=== PATIENT | male | born 1990 | race Caucasian/White ===

== ENCOUNTER 2017-06-03 00:55 | Emergency (ER) | payer OTHER ==
[~2017-06-03] VITALS: Ht 182.9 cm; Wt 89.4 kg
[2017-06-03 01:01] VITALS: BP 117/62
[2017-06-03] MEDS ORDERED: DIPH25CA58 PO (01:23)
[2017-06-03] MEDS ORDERED: FAMO-63 PO (01:23)
--- NOTE | 2017-06-03 01:24 | PHYS DOC ---
Adult General HPI HPI Patient is a 27-year-old male with no significant past medical history presents with concerns of allergic reaction to the right lower extremity. Patient recently had surgery at the ankle and is currently on a cast, surgery was 2 days ago. Patient denies any swelling or pain or discharge or discoloration but does describe the area involved as feeling itchy. Patient denies any throat swelling, difficulty swallowing or shortness of breath. No fever, vomiting, diarrhea Review of Systems Review of Systems Constitutional: Denies fever or chills [] HENT: Denies problems swallowing or sore throat [] Respiratory: Denies cough or shortness of breath [] Cardiovascular: No pain GI: Denies abdominal pain, nausea, vomiting, or diarrhea [] Musculoskeletal: Denies back pain or joint pain [] Integument: Rash in right upper thigh Neurologic: Denies headache, focal weakness or sensory changes [] All other systems were reviewed and found to be within normal limits, except as documented in this note. Current Medications Current Medications Current Medications Medications (Trade) Dose Ordered Sig/Oliver Start Time Stop Time Status Last Admin Dose Admin Dexamethasone (Decadron) 8 mg 1X ONCE 06/03/17 01:15 06/03/17 01:16 UNV Diphenhydramine HCl (Benadryl) 25 mg 1X ONCE 06/03/17 01:15 06/03/17 01:16 UNV Famotidine (Pepcid) 20 mg 1X ONCE 06/03/17 01:15 06/03/17 01:16 UNV Physical Exam Physical Exam Constitutional: Well developed, well nourished, no acute distress, non-toxic appearance. No purulence smells. HENT: Normocephalic, atraumatic, bilateral external ears normal, oropharynx moist, no oral exudates, nose normal. Airways patent Eyes: EOMI, conjunctiva normal, no discharge. [] Neck: Normal range of motion, trachea midline no stridor. [] Cardiovascular:Heart rate regular rhythm, no murmur , normal perfusion Lungs & Thorax: Bilateral breath sounds clear to auscultation, no tachypnea Abdomen: No distention. No lymphadenopathy right inguinal area Skin: Nonspecific rash from knee to upper thigh and right side, some small hives , no petechiae, no desquamation, no weeping. No increased warmth in the area of the rash nor pain with palpation Back: Normal range of motion Extremities: No tenderness, distally neurovascularly intact everywhere, ROM intact, no edema. No evidence of compartment syndrome, full range of motion at the knee without signs of septic joint Neurologic: Alert and oriented X 3, normal motor function, normal sensory function, no focal deficits noted. [] Psychologic: Affect normal, judgement normal, mood normal. [] EKG EKG [] Radiology/Procedures Radiology/Procedures [] Course & Med Decision Making Course & Med Decision Making Pertinent Labs and Imaging studies reviewed. (See chart for details) Patient looks very well and is nontoxic. I have directed the patient to get rechecked and reevaluated on Sunday. Strict return precautions have been discussed which include but are not limited to development of pain, fevers, swelling, discharge, shortness of fair, throat pain, etc. Given the benign exam at presentation I do not believe the patient needs inpatient evaluation or blood work at this time. I also do not believe that he needs to cast removal at this time. However if symptoms worsen or new concerning symptoms develop that may be necessary. At the time of this ED evaluation is appears to be a localized reaction, there are no signs of a systemic illness, there is also no signs of DVT or compartment syndrome or septic joints [] Dragon Disclaimer Dragon Disclaimer This electronic medical record was generated, in whole or in part, using a voice recognition dictation system. Departure Departure: Impression: Primary Impression: Rash Disposition: HOME, SELF-CARE Condition: STABLE Referrals: PCP,UNKNOWN (PCP) Patient Instructions: Rash Additional Instructions: Please follow with your doctor for recheck and reevaluation in 2 days. Please take pictures of the affected area every day to monitor changes Scripts Diphenhydramine Hcl (BENADRYL) 25 Mg Capsule 1 CAP PO TID for 5 Days, #15 CAP 1 Refill Prov: Dorothy AGUILAR MD 06/03/17 Famotidine (PEPCID) 20 Mg Tablet 1 TAB PO TID for 5 Days, #15 TAB 3 Refills Prov: Dorothy AGUILAR MD 06/03/17 Dorothy AGUILAR MD Jun 03, 2017 01:24
[2017-06-03] MEDS ORDERED: FAMOTIDINE 20 MG TABLET PO ONE (01:30)
[2017-06-03] MEDS ORDERED: DEXAMETHASONE 4 MG TABLET PO ONE (01:30)
[2017-06-03] MEDS ORDERED: diphenhydrAMINE HCL 25 MG CAPSULE PO ONE (01:30)
== END 2017-06-03 01:36 | disposition home or self-care (01) ==
LOC: ER 00:55
DX: R21 Rash and other nonspecific skin eruption (principal)
CPT/HCPCS: 99283; J8540

== ENCOUNTER 2017-06-17 21:50 | Emergency (ER) | payer OTHER ==
[~2017-06-17] VITALS: Ht 182.9 cm; Wt 88.0 kg
[~2017-06-17 21:50] MED LIST: DIPH25CA58 PO; FAMO-63 PO
[2017-06-17 21:56] VITALS: BP 166/80
--- NOTE | 2017-06-17 22:15 | PHYS DOC ---
Past History Past Medical History: No Pertinent History Past Surgical History: Other Alcohol Use: Rarely Drug Use: None Adult General Chief Complaint Chief Complaint: WOUND CHECK HPI HPI Patient is a pleasant 27-year-old male with a postoperative wound check after an ankle surgery that occurred on May 14. Patient bereket cast this point given the type of surgery he sustained on May 14 but because of allergic reaction to the sock he was wearing underneath the cast was removed. He is noted increasing drainage from the wound today with localized redness and swelling. Although he denies any fevers he said he has had chills with this drainage. He has increasing pain around the wound edges with no numbness and tingling below the wound. Patient denies any knee pain hip pain or other general reaction. He is follow-up appointment on June 21 with his orthopedic surgeon he is not on any antibiotics pain right now is moderate in nature worse with range of motion and direct pressure over the wound Review of Systems Review of Systems Constitutional: Positive for chills negative for fevers Eyes: Denies change in visual acuity, redness, or eye pain [] HENT: Denies nasal congestion or sore throat [] Respiratory: Denies cough or shortness of breath [] Cardiovascular: No additional information not addressed in HPI [] GI: Denies abdominal pain, nausea, vomiting, bloody stools or diarrhea [] : Denies dysuria or hematuria [] Musculoskeletal: Patient's main complaint is joint pain over the right ankle over the surgical site.[] Integument: he complains of increased redness with localized swelling mild drainage from the wound. Neurologic: Denies headache, focal weakness or sensory changes [] Endocrine: Denies polyuria or polydipsia [] All other systems were reviewed and found to be within normal limits, except as documented in this note. Current Medications Current Medications Current Medications Medications (Trade) Dose Ordered Sig/Oliver Start Time Stop Time Status Last Admin Dose Admin Hydromorphone HCl (Dilaudid) 1 mg 1X ONCE 06/17/17 22:30 06/17/17 22:31 Sodium Chloride 1,000 ml @ 1,000 mls/hr 1X ONCE 06/17/17 22:30 06/17/17 23:29 Allergies Allergies Allergies Coded Allergies Type Severity Reaction Last Updated Verified No Known Drug Allergies 06/03/17 No Physical Exam Physical Exam Constitutional: Well developed, well nourished, no acute distress, non-toxic appearance. [] Cardiovascular:Heart rate regular rhythm, no murmur [] Lungs & Thorax: Bilateral breath sounds clear to auscultation [] Skin: Warm, dry, skin evaluated by the incision site on the medial and lateral aspect of the ankles bilaterally demonstrate granulation tissue around the wound edges with appropriate erythema there is serous sinus drainage. There is some slight yellowing of the discharge there is no expressed pus or significant soft tissue swelling or abscess that developed. His are adherent and well approximated is no obvious signs of dehiscence[] Extremities: Tenderness noted around the wound edges no cyanosis, no clubbing, range of motion is decreased secondary to surgical postoperative changes and patient's reluctant to move wound., no edema. [] Neurologic: Alert and oriented X 3, normal motor function, normal sensory function, no focal deficits noted. [] Psychologic: Affect normal, judgement normal, mood normal. [] EKG EKG [] Radiology/Procedures Radiology/Procedures [] Course & Med Decision Making Course & Med Decision Making Pertinent Labs and Imaging studies reviewed. (See chart for details) []Patient has a wound looks like it's granulating in well and healing well although there is some mild erythema to the wound edges this may be a normal presentation. He has no purulent discharge and no fluctuance that is around the wound edges. I will screen him for cellulitis and ostium myelitis the wound. A CBC, sedimentation rate and CRP will be completed along with x-rays to ensure that this is not osteomyelitis which is doubtful just based on presentation. 3 view ankle films of the right ankle demonstrate no evidence of periosteal inflammation there is no subcutaneous is air patient's wound looks well-healed, there is no marked soft tissue swelling or obvious signs of bony abnormality. The patient at the bedside we are going to clean his wound apply a liberal application of bacitracin ointment to the wound with a nonadherent gauze Kerlix around the wound and a Russell wrap and asked him to follow-up with his orthopedic surgeon in the next 24-48 hours. At this point I do not believe he requires antibiotics. Healing very well with current regulation tissue that does not look infected. Patient did have an elevated white blood cell count on the CBC of 13,000 which may be related to the actual surgery and not be related to infection. Sedimentation rate is normal and I feel convinced that based on patient's presentation and the look of the wound at this is not infected. He had the wound dressed here we taught him how to take care of the wound until his follow- up on the orthopedic surgery. He is also given precautions to return for any worsening symptoms fevers or chills with redness and increased purulent drainage from the wound itself Laboratory Tests Test 06/17/17 22:14 White Blood Count 13.0 x10^3/uL (4.0-11.0) H Red Blood Count 5.85 x10^6/uL (4.30-5.70) H Hemoglobin 17.7 g/dL (13.0-17.5) H Hematocrit 51.1 % (39.0-53.0) Mean Corpuscular Volume 87 fL (79-100) Mean Corpuscular Hemoglobin 30 pg (25-35) Mean Corpuscular Hemoglobin Concent 35 g/dL (31-37) Red Cell Distribution Width 13.1 % (11.5-14.5) Platelet Count 253 x10^3/uL (140-400) Neutrophils (%) (Auto) 56 % (31-73) Lymphocytes (%) (Auto) 32 % (24-48) Monocytes (%) (Auto) 6 % (0-9) Eosinophils (%) (Auto) 6 % (0-3) H Basophils (%) (Auto) 1 % (0-3) Neutrophils # (Auto) 7.3 x10^3uL (1.8-7.7) Lymphocytes # (Auto) 4.1 x10^3/uL (1.0-4.8) Monocytes # (Auto) 0.7 x10^3/uL (0.0-1.1) Eosinophils # (Auto) 0.8 x10^3/uL (0.0-0.7) H Basophils # (Auto) 0.1 x10^3/uL (0.0-0.2) Erythrocyte Sedimentation Rate Pending discharge: I've spoken with the patient and/or caregivers. I've explained the patient's condition, diagnosis and treatment plan based on information available to me at this time. I've answered the patient's and/or caregivers questions and addressed any concerns. The patient and/or caregivers have a good understanding the patient's diagnosis, condition and treatment plan as can be expected at this point. Vital signs have been stabilized. The patient's condition is stable for discharge from the emergency department. The patient will pursue further outpatient evaluation with her primary care provider or other designated consulting physician as outlined in the discharge instructions. Patient and/or caregivers are agreeable to this plan of care and follow-up instructions have been explained in detail. The patient and/or caregivers have received these instructions in written format and expressed understanding of these discharge instructions. The patient and her caregivers are aware that if any significant change in condition or worsening of symptoms should prompt him to immediately return to this of the closest emergency department. If an emergent department is not readily available I would encourage him to call 911. Dragon Disclaimer Dragon Disclaimer This electronic medical record was generated, in whole or in part, using a voice recognition dictation system. Departure Departure: Impression: Primary Impression: Encounter for postoperative wound check Disposition: HOME, SELF-CARE Condition: IMPROVED Referrals: CORINA EASON MD (PCP) Patient Instructions: Wound Care, [id number] Additional Instructions: discharge: I've spoken with the patient and/or caregivers. I've explained the patient's condition, diagnosis and treatment plan based on information available to me at this time. I've answered the patient's and/or caregivers questions and addressed any concerns. The patient and/or caregivers have a good understanding the patient's diagnosis, condition and treatment plan as can be expected at this point. Vital signs have been stabilized. The patient's condition is stable for discharge from the emergency department. The patient will pursue further outpatient evaluation with her primary care provider or other designated consulting physician as outlined in the discharge instructions. Patient and/or caregivers are agreeable to this plan of care and follow-up instructions have been explained in detail. The patient and/or caregivers have received these instructions in written format and expressed understanding of these discharge instructions. The patient and her caregivers are aware that if any significant change in condition or worsening of symptoms should prompt him to immediately return to this of the closest emergency department. If an emergent department is not readily available I would encourage him to call 911. Scripts Hydrocodone Bit/Acetaminophen (HYDROCODONE-APAP 5-325 ) 1 Each Tablet 1 TAB PO PRN Q6HRS Y for PAIN for 3 Days, #6 TAB 0 Refills Prov: BROVONT,TAMMI A MD 06/17/17 Bacitracin (BACITRACIN) 3.5 Gm Oint...g. 1 HARESH TP TID, #3.5 GM Prov: TAMMI SHERMAN MD 06/17/17 TAMMI SHERMAN MD Jun 17, 2017 22:15
[2017-06-17] MEDS ORDERED: HYDROmorphone PF 2 MG/ML VIAL ONE (22:27)
[2017-06-17] MEDS ORDERED: IV NORMAL SALINE 1,000ML 1,000 ML IV ONE (22:30)
[2017-06-17] MEDS ORDERED: HYDROmorphone PF 1 MG/ML DISP.SYRIN IV ONE (22:30)
[2017-06-17 22:40] LABS: BASO # 0.1 x10^3/uL (0.0-0.2); BASO % 1 % (0-3); EOS # 0.8 x10^3/uL (0.0-0.7); EOS % 6 % (0-3); HEMATOCRIT 51.1 % (39.0-53.0); HEMOGLOBIN 17.7 g/dL (13.0-17.5); LYMPH # 4.1 x10^3/uL (1.0-4.8); LYMPH % 32 % (24-48); MEAN CORPUSCULAR HEMOGLOBIN 30 pg (25-35); MEAN CORPUSCULAR HGB CONC 35 g/dL (31-37); MEAN CORPUSCULAR VOLUME 87 fL (79-100); MONO # 0.7 x10^3/uL (0.0-1.1); MONO % 6 % (0-9); NEUT # 7.3 x10^3uL (1.8-7.7); NEUT % 56 % (31-73); PLATELET COUNT 253 x10^3/uL (140-400); RED BLOOD COUNT 5.85 x10^6/uL (4.30-5.70); RED CELL DISTRIBUTION WIDTH 13.1 % (11.5-14.5)
[2017-06-17 22:57] LABS: ALBUMIN 4.2 g/dL (3.4-5.0); ALBUMIN/GLOBULIN RATIO 1.2 (1.0-1.7); CALCIUM 9.4 mg/dL (8.5-10.1); POTASSIUM 3.7 mmol/L (3.5-5.1); TOTAL BILIRUBIN 0.7 mg/dL (0.2-1.0); TOTAL PROTEIN 7.7 g/dL (6.4-8.2)
[2017-06-17] MEDS ORDERED: BACI3.5O8 TP (22:59)
[2017-06-17] MEDS ORDERED: HYDR-2758 PO (22:59)
[2017-06-17] MEDS ORDERED: BACITRACIN ZINC TOPICAL OINT PACKET. TP ONE (23:00)
[2017-06-17] MEDS ORDERED: HYDROmorphone PF 2 MG/ML VIAL IV ONE (23:00)
[2017-06-17 23:48] LABS: SEDIMENTATION RATE 1 (0-15)
--- NOTE | 2017-06-18 07:52 | RAD ---
Right ankle, 3 views, 06/17/2017: History: Ankle pain and swelling No fracture or dislocation is identified. There is mild diffuse soft tissue swelling. Surgical clips are present posteromedially. IMPRESSION: No acute bony abnormality is detected.
== END 2017-06-17 23:40 | disposition home or self-care (01) ==
LOC: ER 21:50
DX: Z48.01 Encounter for change or removal of surgical wound dressing (principal); T81.4XXA Infection following a procedure, initial encounter; Z98.890 Other specified postprocedural states
CPT/HCPCS: 36415; 73610; 80053; 85025; 85651; 96374; 99285; J1170; J7030

== ENCOUNTER 2018-04-02 23:40 | Emergency (ER) | payer OTHER ==
[~2018-04-02] VITALS: Ht 182.9 cm; Wt 90.7 kg
[~2018-04-02 23:40] MED LIST changes: +BACI3.5O8 TP; +HYDR-2758 PO
[2018-04-03] MEDS ORDERED: HYDROcodone/APAP 5/325MG 1 TAB TABLET PO ONE (00:15)
[2018-04-03] MEDS ORDERED: KETOROLAC 60 MG/2 ML VIAL. IM ONE (00:15)
[2018-04-03] MEDS ORDERED: IBUP800T19 PO (00:22)
[2018-04-03] MEDS ORDERED: HYDR-2758 PO (00:22)
[2018-04-03 00:24] LABS: BACTERIA,URINE 0 /HPF (0-FEW); BILIRUBIN,URINE NEG (NEG); CLARITY,URINE CLEAR; COLOR,URINE YELLOW; GLUCOSE,URINE NEG (NEG); NITRITE,URINE NEG (NEG); RBC,URINE 0 /HPF (0-2); SQUAMOUS EPITHELIAL CELL,UR OCC /LPF; UROBILINOGEN,URINE 0.2 mg/dL (0.2 mg/dL); WBC,URINE RARE /HPF (0-4)
--- NOTE | 2018-04-03 00:29 | PHYS DOC ---
Adult General Chief Complaint Chief Complaint Back pain HPI HPI 28 years old female presented to the emergency department with back pain on the left side worse when he moves or bend better when he lays flat in the bed pain does not radiate his leg get worse with it movement and gets better with rest rated 10 out of 10 no urinary symptoms no fever no cough no abdominal pain no nausea no vomiting no diarrhea Review of Systems Review of Systems Constitutional: Denies fever or chills [] Eyes: Denies change in visual acuity, redness, or eye pain [] HENT: Denies nasal congestion or sore throat [] Respiratory: Denies cough or shortness of breath [] Cardiovascular: No additional information not addressed in HPI [] GI: Denies abdominal pain, nausea, vomiting, bloody stools or diarrhea [] : Denies dysuria or hematuria [] Musculoskeletal: Denies joint pain [] Integument: Denies rash or skin lesions [] Neurologic: Denies headache, focal weakness or sensory changes [] Endocrine: Denies polyuria or polydipsia [] All other systems were reviewed and found to be within normal limits, except as documented in this note. Current Medications Current Medications Current Medications Medications (Trade) Dose Ordered Sig/Oliver Start Time Stop Time Status Last Admin Dose Admin Acetaminophen/ Hydrocodone Bitart (Lortab 5/325) 2 tab 1X ONCE 04/03/18 00:15 04/03/18 00:16 UNV 04/03/18 00:15 2 TAB Ketorolac Tromethamine (Toradol Im) 60 mg 1X ONCE 04/03/18 00:15 04/03/18 00:16 UNV 04/03/18 00:17 60 MG Allergies Allergies Allergies Coded Allergies Type Severity Reaction Last Updated Verified No Known Drug Allergies 06/03/17 No Physical Exam Physical Exam Constitutional: Well developed, well nourished, no acute distress, non-toxic appearance. [] HENT: Normocephalic, atraumatic, bilateral external ears normal, oropharynx moist, no oral exudates, nose normal. [] Eyes: PERRLA, EOMI, conjunctiva normal, no discharge. [] Neck: Normal range of motion, no tenderness, supple, no stridor. [] Cardiovascular:Heart rate regular rhythm, no murmur [] Lungs & Thorax: Bilateral breath sounds clear to auscultation [] Abdomen: Bowel sounds normal, soft, no tenderness, no masses, no pulsatile masses. [] Skin: Warm, dry, no erythema, no rash. [] Back: no CVA tenderness. [] Extremities: No tenderness, no cyanosis, no clubbing, ROM intact, no edema. [] Neurologic: Alert and oriented X 3, normal motor function, normal sensory function, no focal deficits noted. [] Psychologic: Affect normal, judgement normal, mood normal. [] Current Patient Data Vital Signs Vital Signs Date Time Temp Pulse Resp B/P (MAP) Pulse Ox O2 Delivery O2 Flow Rate FiO2 04/03/18 00:15 16 99 Room Air 04/02/18 23:47 97.5 87 Lab Results Laboratory Tests Test 04/03/18 00:03 Urine Collection Type Unknown Urine Color Yellow Urine Clarity Clear Urine pH 5.5 Urine Specific [place] >=1.030 Urine Protein Neg (NEG-TRACE) Urine Glucose (UA) Neg mg/dL (NEG) Urine Ketones (Stick) Neg mg/dL (NEG) Urine Blood Neg (NEG) Urine Nitrite Neg (NEG) Urine Bilirubin Neg (NEG) Urine Urobilinogen Dipstick 0.2 mg/dL (0.2 mg/dL) Urine Leukocyte Esterase Neg (NEG) Urine RBC 0 /HPF (0-2) Urine WBC Rare /HPF (0-4) Urine Squamous Epithelial Cells Occ /LPF Urine Bacteria 0 /HPF (0-FEW) EKG EKG [] Radiology/Procedures Radiology/Procedures [] Course & Med Decision Making Course & Med Decision Making Pertinent Labs and Imaging studies reviewed. (See chart for details) [] Final Impression Final Impression [] Problems: (1) Back pain Qualifiers: Qualified Codes: M54.5 - Low back pain Dragon Disclaimer Dragon Disclaimer This electronic medical record was generated, in whole or in part, using a voice recognition dictation system. DANIELLE PADILLA MD Apr 03, 2018 00:29
[2018-04-03] MEDS ORDERED: MORPHINE SULFATE 4 MG/ML DISP.SYRIN. IM ONE (00:45)
[2018-04-03 00:51] VITALS: BP 122/73
== END 2018-04-03 00:58 | disposition home or self-care (01) ==
LOC: ER 23:40
DX: M54.5 Low back pain (principal)
CPT/HCPCS: 81001; 96372; 99283; J1885